=== PATIENT | female | born 1995 | race Caucasian/White ===

== ENCOUNTER 2016-05-02 21:36 | Emergency (ER) ==
[2016-05-02] MEDS ORDERED: DUONEB (A & A) INH ONE (23:59)
--- NOTE | 2016-05-03 | PROVIDER DOCUMENTATION ---
HPI-Respiratory General - General Chief Complaint: Cold Symptoms Stated Complaint: COUGH, LUNG PAIN Time Seen by Provider: 05/02/16 23:55 Source: patient Allergies/Adverse Reactions: Patient Allergies Allergy/AdvReac Type Severity Reaction Status Date / Time codeine [Codeine] Allergy Severe Facial Verified 05/02/16 23:44 swelling; THROAT SWELLING Home Medications: Home Medication List Medication Instructions Recorded Confirmed Last Taken Type Albuterol Sulfate [Proair Hfa] 8.5 gm IH 3-4XDAY PRN PRN #1 05/03/16 Unknown Rx [email or web address] Azithromycin [Zithromax Z-[place]] 250 mg PO DIRECTED #1 pkg 05/03/16 Unknown Rx Benzonatate [Tessalon] 100 mg PO TID PRN PRN #20 capsule 05/03/16 Unknown Rx - History of Present Illness-Resp Nature of Presenting Problem: 20 year old WF presents with c/o 4 day history of cough, wheezing and right sided chest pain with deep inspiration. pt denies fever, chills, nausea, vomiting, diarrhea. Quality of Pain: reports: sharp, stabbing Severity in ED: reports: mild Onset/Duration: reports: 4 days ago Timing: reports: intermittent (with inspiration), getting worse Context: reports: recent URI Exposure: reports: unknown cause Cough Quality/Degree: reports: moderate, dry cough. denies: sputum, blood streaked sputum Episode Frequency: no prior episodes Current Respiratory Medication Therapy: Initiated none Modifying Factors: improves with: nothing Associated Symptoms: reports: chest pain/soreness, cough. denies: fever/chills Review of Systems - Adult - REVIEW OF SYSTEMS - ADULT Constitutional: reports: no symptoms reported. denies: chills, fever, fatique Eyes: reports: no symptoms reported. denies: discharge, blurred vision, double vision Ears, Nose, Mouth & Throat: reports: no symptoms reported. denies: ear discharge, hearing loss, nose pain, loose teeth, throat pain, throat swelling Cardiovascular: reports: see HPI, chest pain. denies: edema, heart murmur, irregular heart rate, orthopnea, palpitations, poor circulation, PND, syncope Respiratory: reports: see HPI, cough, shortness of breath, wheezing. denies: chronic cough, dyspnea on exertion, excessive sputum production, hemoptysis, pleurisy Gastrointestinal: reports: no symptoms reported. denies: abdominal pain, diarrhea, nausea, vomiting Genitourinary: reports: no symptoms reported. denies: dysuria, hematuria, urgency Musculoskeletal: reports: no symptoms reported. denies: bone pain, joint pain, joint swelling, neck pain Integumentary: reports: no symptoms reported Neurological: reports: no symptoms reported. denies: ataxia, numbness, paresthesia, tremors Psychiatric: reports: no symptoms reported Endocrine: reports: no symptoms reported Hematologic/Lymphatic: reports: no symptoms reported Allergic/Immunologic: reports: no symptoms reported All Other Systems: Reviewed and Negative Past History - Adult - PAST MEDICAL HISTORY-ADULT Review of Records: reports: Old Records Reviewed, Nursing Assessment Review, Medications Reviewed, Social history reviewed & non-contributory. Major Childhood Illnesses: reports: denies history Cardiovascular: reports: denies history Respiratory: reports: denies history Gastrointestinal: reports: denies history Obstetrical/Gynecological: reports: denies history Genitourinary: reports: denies history Musculoskeletal: reports: denies history Neurological: reports: denies history Endocrine/Immune: reports: denies history Other Conditions: reports: denies history - PRIOR SURGERIES/PROCEDURES Surgical/Procedure History: reports: none - PRIOR HOSPITALIZATIONS Prior Hospitalizations: reports: none - IMMUNIZATION STATUS Childhood Immunizations: UTD, See Nurse Assessment Flu Vaccine: See Nurse Assessment - FAMILY HISTORY Family History: reviewed, not pertinent - SOCIAL HISTORY Smoking: cigarettes Provider spent 3-5 mins advising pt. on dangers of tobacco.: Discussed manners to quit use, and f/u contacts for add'l counseling. Substance Use: none/never Alcohol Use Frequency: never Physical Exam-General - PHYSICAL EXAM-ADULT Initial Vital Signs Reviewed: Yes - CONSTITUTIONAL General Appearance: appears well, alert, no apparent distress. negative: mild distress, moderate distress, severe distress - EYES Eyes: pink conjunctivae. negative: conjuctival exudate - HEAD, EARS, NOSE, MOUTH & THROAT HENMT: normocephalic/atraumatic, moist mucous membranes, normal ENT inspection - NECK Neck: non-tender, full range of motion, supple, normal inspection - RESPIRATORY Respiratory: no respiratory distress, no accessory muscle use, decreased breath sounds, rhonchi, wheezing. negative: chest non-tender, lungs clear, normal breath sounds, no pleuratic chest pain (pt reports right sided chest pain with deep inspiration), respiratory distress, accessory muscle use, crackles, rales, stridor - CARDIOVASCULAR Cardiovascular: normal peripheral pulses, regular rate, rhythm - CHEST (BREASTS) Chest/Breast: no tenderness (pt reports no pain at rest, only with deep inspiration) - GASTROINTESTINAL (ABDOMEN) Abdominal Exam: normal bowel sounds, non tender, soft, no organomegaly - GENITOURINARY Female Genitalia/Pelvic Exam: deferred Rectal Exam: deferred Hemoccult Exam: deferred - LYMPHATIC Lymphatic: no adenopathy - MUSCULOSKELETAL Back Exam: normal inspection, no CVA tenderness, no vertebral tenderness. negative: CVA tenderness, decreased range of motion, swelling, vertebral tenderness Extremity: normal range of motion, non-tender, normal gait, normal inspection, no pedal edema, no calf tenderness, normal capillary refill. negative: deformity, erythema, inflammation Peripheral Pulses: radial (R): 3+, radial (L): 3+, dorsalis-pedis (R): 3+, dorsalis-pedis (L): 3+ - SKIN Integumentary: normal color, normal turgor, warm/dry - NEUROLOGIC Neurologic: grossly normal, no motor/sensory deficits - PSYCHIATRIC Psych/Mental Status: normal mood/affect, normal thought content, normal thought process, oriented x 3 Progress - PLAN OF CARE/RESULTS Progress/Plan/Lab Results: Orders Category Date Time Status ED: Urine Bedside ORDERED Care 05/02/16 23:26 Active CHEST-2 VIEWS [RAD] Stat Exams 05/02/16 21:40 Completed Albuterol 2.5MG/Ipratrop 0.5MG [Duoneb (A & A)] Med 05/02/16 23:59 Discontinued 3 ml INH NOW ONE Azithromycin [Zithromax] Med 05/03/16 00:09 Discontinued 500 mg PO NOW ONE Benzonatate [Tessalon] Med 05/03/16 00:09 Discontinued 100 mg PO NOW ONE Aerosol Treatments Routine Oth 05/02/16 23:59 Active Aerosol Treatments Stat Oth 05/02/16 23:59 Active - REASSESSMENT Reassessment #1 Time Reassessed: 00:00 Status: improving Departure - Departure Time of Disposition Order: 00:04 DIAGNOSIS: Bronchitis Disposition: HOME 01 Certified Medical Emergency: Emergent Condition: Stable Additional Instructions: ED Follow Up Instructions: You have been treated by a care provider in the Emergency Department. These instructions are being provided to you so you can have an understanding of how to care for yourself upon discharge. Upon discharge from the Emergency Department, you are responsible for making arrangements for follow-up care by a physician of your choice. Take all prescribed medications as directed. Return to the Emergency Department immediately for any new or worsening symptoms. You may call the Physician Referral phone number at [phone] to obtain a list of Physicians who are taking new patients. Prescriptions: Albuterol Sulfate [Proair Hfa] 8.5 gm IH 3-4XDAY PRN PRN #1 [email or web address] PRN Reason: Wheezing Benzonatate [Tessalon] 100 mg PO TID PRN PRN #20 capsule PRN Reason: Cough Azithromycin [Zithromax Z-[place]] 250 mg PO DIRECTED #1 pkg Referrals: None,PCP [Primary Care Provider] - [facility] [NON-STAFF] - Forms: Return to School/Parent Work Instructions: Acute Bronchitis Attestation - Physician/ SIMEON Attestation Patient care was provided by Advanced Practice Provider:: Yes Advanced Practice Provider:: Amarjit Vidal Advanced Practice Provider documentation review:: The Mid-level provider documentation, treatment plan and medical decision making was reviewed by the physician who agrees with all treatment and medical decision making by the MLP.
[2016-05-03] MEDS ORDERED: TESSALON PO ONE (00:09)
[2016-05-03] MEDS ORDERED: ZITHROMAX PO ONE (00:09)
[2016-05-03 00:34] VITALS: BP 132/70
--- NOTE | 2016-05-03 07:48 | Diag Imaging Result Document ---
PROCEDURE NAME: CHEST-2 VIEWS - 05/02/2016 FRONTAL AND LATERAL CHEST, TWO VIEWS: COMPARISON: Compared to 02/18/2014. FINDINGS: The lungs are well expanded. The heart is not enlarged. The vessels are not distended. There are no infiltrates. No pleural effusions. No consolidation. IMPRESSION: No acute abnormality
== END 2016-05-03 00:34 | disposition home or self-care (01) ==
LOC: ED 21:36
DX: J40 Bronchitis, not specified as acute or chronic (principal); R05 Cough; R07.1 Chest pain on breathing
CPT/HCPCS: 71020; 99284